=== PATIENT | male | born 1945 | race Caucasian/White ===

== ENCOUNTER → 2022-06-15 16:39 | Outpatient (ROUT) | payer MEDICARE, SELFPAY ==
[2022-06-15 17:19] LABS: Troponin I < 0.012 ng/mL (0.01-0.034)
== END ==
PROVIDERS: Visit Provider Physician Assistant
DX: R07.89 Other chest pain (principal)
CPT/HCPCS: 84484

== ENCOUNTER → 2022-08-20 07:43 | Outpatient (CLI) | payer OTHER, SELFPAY ==
--- NOTE | 2022-08-20 07:45 | DI.MRI.S_ITS ---
PROCEDURE: MR PELIS WO/W CON INDICATIONS: History of large prostate with negative biopsy 10-12 years ago. No current symptoms. Rising PSA. TECHNIQUE: Coronal HASTE, axial T1 FSE with fat saturation, 3-plane nonbreath-hold T2 FSE. After the administration of contrast, dynamic axial, delayed axial and coronal VIBE or 2-D FLASH with fat saturation through the pelvis. Optional diffusion weighted imaging and ADC may be performed. COMPARISON: None. FINDINGS: Image quality: Diffusion weighted and dynamic contrast enhanced images are diagnostic. Prostate: Gland size is 5.9 x 5.0 x 6.7 cm; ellipsoid gland volume is 103 mL. Hypertrophy of the transitional zone. Lesion 1: Location: Right medial peripheral zone, apex (series 5, image 22 and series 3, image 12) Size: 0.6 x 0.4 centimeter T2 signal: Moderately T2 hypointense DWI: Isointense ADC: Markedly hypointense Enhancement: Negative Extracapsular extension: No PI-RADS score: 3 Genitourinary system: Bladder wall thickness is normal. Trabeculated bladder wall. Large diverticula the bladder dome. Distal ureters are non distended. Bowel and peritoneum: No pathologic free pelvic fluid. Inferior colon and small bowel loops are normal in caliber. Colonic diverticulosis without evidence of diverticulitis. Nodes and vessels: No pelvic or inguinal adenopathy by size criteria. Iliac vessels are normal in caliber. Soft tissues: Fat within the right inguinal canal. Bones: Marrow demonstrates normal overall signal, without lesions to suggest metastases. IMPRESSION: Prostatomegaly. PI-RADS 3 lesion at the apex of the right peripheral zone, as above. No pelvic adenopathy or gross of osseous abnormality. Trabeculated bladder wall and bladder diverticulum. Colonic diverticulosis without evidence of diverticulitis. Dictated by: Bhargav Melo M.D. on 08/20/2022 at 11:39 Approved by: Bhargav Melo M.D. on 08/20/2022 at 11:48
--- NOTE | 2022-08-22 12:30 | PC.NURSE ---
late entry note for 06/13/22: HS glucocheck and insulin admin, the emar mistakenly recorded 100 units given at HS. he was given the appropriate dose of insulin for sliding scale.
[2022-08-23 17:06] LABS: PSA Free % 24.3 % (.); PSA, Total 6.1 ng/mL (0.0-4.0)
== END ==
PROVIDERS: PCP Physician Assistant; Referring Provider Specialist; Visit Provider Specialist
DX: N40.1 Benign prostatic hyperplasia with lower urinary tract symptoms (principal); R97.20 Elevated prostate specific antigen [PSA]; N13.8 Other obstructive and reflux uropathy; N32.89 Other specified disorders of bladder; N32.3 Diverticulum of bladder; K57.90 Diverticulosis of intestine, part unspecified, without perforation or abscess without bleeding
CPT/HCPCS: 36415; 72197; 84153; 84154; A9579

== ENCOUNTER → 2022-10-04 09:30 | Outpatient (CLI) | payer OTHER, SELFPAY ==
--- NOTE | 2022-10-04 09:32 | DI.CT.S_ITS ---
PROCEDURE: CT IVP A/P W/WO INDICATIONS: Hematuria TECHNIQUE: Optional 5 mm thick noncontrast images acquired from the diaphragm to the symphysis pubis. After the administration of intravenous contrast, 5 mm thick images acquired from the diaphragm to the symphysis pubis after a 10-minute delay. 2 mm thick coronal and sagittal reformats were then performed of the kidneys and ureters. For radiation dose reduction, the following was used: automated exposure control, adjustment of mA and/or kV according to patient size. COMPARISON: None. FINDINGS: Lower thorax: The lung bases are clear. Heart size normal. Small hiatal hernia noted. Liver: Multiple simple cysts noted in both lobes of liver, measuring up to 1.8 cm on the left. No intrinsic mass lesion. Biliary system: Cholecystectomy. No intra or extrahepatic bile duct dilation. Pancreas: Unremarkable without mass or inflammation evident. Spleen: Normal in size and density. Adrenals: Normal morphology and density. Reproductive system: Hypertrophic prostate elevates the bladder floor, and measures 6.1 x 6.8 by 7.7 cm. Urinary system: Bilateral nonobstructing renal calculi present. Largest on the left measures 1.7 x 0.9 cm, largest on the right measures 0.7 cm. No hydronephrosis present bilaterally. There are bilateral renal cysts, larger on the right measures 5.7 cm. Both kidneys enhance and excrete contrast appropriately. There is a bladder diverticulum arising from the dome of the bladder measuring 2 cm Gastrointestinal system: The bowel is unremarkable without evidence of bowel obstruction or inflammation. The stomach appears unremarkable. Multiple diverticula arise from the sigmoid colon without evidence of diverticulitis. Appendix: No findings to suggest acute appendicitis. Peritoneal spaces: No mesenteric or retroperitoneal adenopathy. No free air. No free fluid. Vasculature: Aortic atherosclerotic vascular calcification noted without evidence of aneurysm. Abdominal wall: Right inguinal hernia(s) contain fat without bowel involvement. Musculoskeletal: Normal bone mineralization. Degenerative disc disease and arthropathy noted in lower lumbar spine. No acute fractures. IMPRESSION: 1. Hypertrophic prostate elevates the bladder floor. No significant bladder wall thickening or hydronephrosis. Midline bladder diverticulum arises from the bladder dome 2. Multifocal hepatorenal simple cysts. Additional incidental findings as above Approved by: Henry Garibay M.D. on 10/04/2022 at 19:19
[2022-10-04 10:15] LABS: BUN Creatinine Ratio 22.3 (6-22); Blood Urea Nitrogen 25 mg/dL (9-20); Calcium 9.4 mg/dL (8.4-10.2); Carbon Dioxide 29 mmol/L (22-32); Chloride 106 mmol/L (98-107); Estimated Glomerular Filt Rate > 60 mL/min (>60); Glucose 133 mg/dL (80-110); HEMOLYSIS < 15 (0-50); Potassium 4.2 mmol/L (3.4-5.1); Sodium 140 mmol/L (137-145)
== END ==
PROVIDERS: PCP Physician Assistant; Referring Provider Specialist; Visit Provider Specialist
DX: N40.1 Benign prostatic hyperplasia with lower urinary tract symptoms (principal); N13.8 Other obstructive and reflux uropathy; R31.9 Hematuria, unspecified; N28.1 Cyst of kidney, acquired; K76.89 Other specified diseases of liver; K44.9 Diaphragmatic hernia without obstruction or gangrene; N20.0 Calculus of kidney; N32.3 Diverticulum of bladder; K57.30 Diverticulosis of large intestine without perforation or abscess without bleeding; M51.36 Other intervertebral disc degeneration, lumbar region; M47.816 Spondylosis without myelopathy or radiculopathy, lumbar region; I70.0 Atherosclerosis of aorta; Z90.49 Acquired absence of other specified parts of digestive tract
CPT/HCPCS: 36415; 74178; 80048; Q9967